=== PATIENT | male | born 2000 | race Caucasian/White ===

== ENCOUNTER → 2024-04-11 | Outpatient (CLI) | payer OTHER | LOC: M RAD 15:50 | PROVIDERS: ATTEND Physician Assistant | DX: M25.531 Pain in right wrist (principal) ==

== ENCOUNTER → 2024-05-17 | Outpatient (CLI) | payer OTHER | LOC: M SOG 07:57 | PROVIDERS: ATTEND Physician Assistant | DX: M25.531 Pain in right wrist (principal) ==

== ENCOUNTER 2024-07-03 08:01 | Day surgery (SDC) | payer OTHER ==
[~2024-07-03] VITALS: Ht 167.6 cm; Wt 77.4 kg
[2024-07-03] MEDS ORDERED: LR 1,000 ML IV SCH ×2 (08:50→12:50)
[2024-07-03] MEDS: LIDOCAINE 1% SDV 5ML VIAL PN ONE (09:25)
[2024-07-03] MEDS: ROPIvacaine 0.5% 30ML VIAL PN ONE (09:25)
[2024-07-03] MEDS: EPINEPHrine INJ 1 MG/ML 1ML AMP PN ONE (09:25)
[2024-07-03] MEDS ORDERED: ONDANSETRON 4MG 2ML VIAL As Ordered ONE (09:53)
[2024-07-03] MEDS ORDERED: SUGAMMADEX SODIUM 500 MG/5 ML VIAL (BRIDION) As Ordered ONE (09:53)
[2024-07-03] MEDS ORDERED: propofoL 200 MG/20 ML VIAL As Ordered ONE (09:53)
[2024-07-03] MEDS ORDERED: ROCURONIUM BROMIDE 50MG/5ML VIAL As Ordered ONE (09:53)
[2024-07-03] MEDS ORDERED: LIDOCAINE 2% 100MG/5ML SDV (FOR ANES.) As Ordered ONE (09:53)
[2024-07-03] MEDS ORDERED: ACETAMINOPHEN 1000MG 100ML IV BAG As Ordered ONE (09:53)
[2024-07-03] MEDS: MIDAZOLAM INJ 2MG/2ML VIAL IV PRN (09:56)
[2024-07-03] MEDS: fentaNYL 100 MCG/2 ML INJECTION IV PRN (09:56)
[2024-07-03] MEDS: ceFAZolin SOD 2 GM in IV 1 EA IV ONE (10:40)
[2024-07-03] MEDS ORDERED: HYDROMORPHONE HCL 0.5 MG/ 0.5 ML SYRINGE IV PRN (12:50)
[2024-07-03] MEDS ORDERED: oxyCODONE 5MG TAB PO PRN (12:50)
[2024-07-03] MEDS ORDERED: fentaNYL 100 MCG/2 ML INJECTION IV PRN (12:50)
[2024-07-03] MEDS ORDERED: PERC5TAB12 PO (12:51)
[2024-07-03] MEDS: ONDANSETRON 4MG 2ML VIAL IV PRN (13:15)
[2024-07-03 14:15] VITALS: BP 160/90; TEMP 97.6; O2SAT 98
== END 2024-07-03 14:52 | disposition home or self-care (01) ==
LOC: M SDC 08:01
PROVIDERS: ATTEND Orthopaedic Surgery Hand Surgery
DX: M93.1 Kienbock's disease of adults (principal)
CPT/HCPCS: 25390; 76000; C1713; J0131; J0690; J1100; J2250; J2405; J3010

== ENCOUNTER → 2024-07-14 | Outpatient (CLI) | payer OTHER ==
[~2024-07-14] MED LIST: PERC5TAB12 PO
== END ==
LOC: M SOG 07:23
PROVIDERS: ATTEND Physician Assistant
DX: M25.531 Pain in right wrist (principal)

== ENCOUNTER → 2024-08-15 | Outpatient (CLI) | payer OTHER | LOC: M SOG 13:39 | PROVIDERS: ATTEND Physician Assistant | DX: M25.531 Pain in right wrist (principal) ==

== ENCOUNTER → 2024-09-27 | Outpatient (CLI) | payer OTHER | LOC: M SOG 16:02 | PROVIDERS: ATTEND Physician Assistant | DX: M25.531 Pain in right wrist (principal); S52.501D Unspecified fracture of the lower end of right radius, subsequent encounter for closed fracture with routine healing ==